=== PATIENT | male | born 1965 | race Caucasian/White ===

== ENCOUNTER 2024-04-14 08:54 | Emergency (ER) | payer BC, SELFPAY ==
[2024-04-14 09:02] VITALS: BP 135/92
--- NOTE | 2024-04-14 09:36 | ED.GENMED ---
History of Present Illness
General
Chief Complaint: Musculo-Skeletal Complaint
Source: patient
Exam Limitations: none
Time Seen by Provider: 04/14/24 09:35
Nursing documentation reviewed up to this point in time: agreed with
History of Present Illness
History of Present Illness:
This is a 59-year-old male with no past medical history who presents emergency department today with concerns of right hip pain and buttocks pain. Patient reports he feels it in the right buttocks and hip and will radiate down to the back of the
right thigh patient reports that he was walking on ice yesterday and reports that he slipped and almost fell when he tenses muscles and caught himself. Patient reports that after this occurred, he felt sharp pain and since then has been had
constant on and off pain and has trouble bearing weight on the right side. He did not fall to the ground. 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 Patient states that he has
been taking ibuprofen and Tylenol without relief. He went to urgent care yesterday and he is from [facility] but states that this has not helped his symptoms. He denies any trauma to the head, denies any neck pain. He denies any chest pain,
abdominal pain, shortness of breath
Review of Systems
Review of Systems
All Other Systems: ROS reviewed and negative except as documented in HPI and ROS
Phy Exam
Physical Exam
Physical Exam:
General: Patient is well appearing and in no acute distress; non-toxic
Skin: Warm and dry, no rashes or lesions
Head: Normocephalic, atraumatic
Eyes: Sclera non-icteric. EOMs intact.
Cardiac: Regular rate and rhythm, no murmurs
Peripheral Vascular: 2+ DP/PT pulses on the right
Pulm: Normal respiratory effort
Musculoskeletal: Point tenderness noted over the right gluteus, no hip pain with internal or external rotation, significant pain with hip flexion, positive straight leg raise
Neuro: CN II-XII intact, no focal neurologic deficits. 5/5 strength in bilateral lower extremeties
Psychiatric: Appropriate mood and affect.
Course
Orders/Labs/Results
Orders:
Orders
04/14/24 09:49
Ketorolac [Toradol] 15 mg IM NOW STA
CR Hip - RT w/wo Pel 2-3 Vw* Urgent
Comment:
Reason For Exam: right hip pain following slip
Include a pelvis x-ray?: Yes
CR Lumbar Spine 2 Or 3 Views Urgent
Comment:
Reason For Exam: right hip pain, low back pain
Vital Signs
Initial and Last Documented VS:
Initial Vital Signs
Temp Pulse Resp BP Pulse Ox
97.3 F 108 18 135/92 100
04/14/24 09:02 04/14/24 09:02 04/14/24 09:02 04/14/24 09:02 04/14/24 09:02
Last Documented Vital Signs
Temp Pulse Resp BP Pulse Ox
97.3 F 71 16 135/92 98
04/14/24 09:02 04/14/24 10:15 04/14/24 10:15 04/14/24 09:02 04/14/24 10:15
MDM/Problems Addressed
Differential Diagnosis Includes:
psoas strain, hip flexor sprain, hip bursitis
MDM/Problems Addressed:
59-year-old male with no past medical history presents emergency department today with concerns of hip pain. This started after an injury that occurred yesterday. On physical exam, he is well-appearing, he is most comfortable in the prone
position, he does have a lot of pain with hip flexion but no pain with internal/external rotation. A lot of palpable tenderness over the gluteus. Suspect hip flexor strain. Did initially offer Toradol shot to patient but he states that he would
rather trial Medrol Dosepak and Tylenol at home. Patient stable for discharge.
*Pulse Oximetry
Patient hypoxic: no
*Critical Care Note
Total Time (30-74mins, 75-104mins- exclusive of procedures): Not Applicable
Data Reviewed
Review of Other/Old Records Reveals: Records (No previous ER physician documentation to review) and Discharge Summary (No hospital discharge summaries for review)
Source: patient and records
ED Attending Note
-
Portions of this chart may have been created with voice recognition software.� Occasional wrong word or��sound alike� substitutions may have occurred due to the inherent limitations of voice recognition software.
Discharge Plan
Departure
Patient Disposition: Home (Routine Discharge)
Date of Disposition: 04/14/24
Time of Disposition: 10:50
Patient with high blood pressure during this ER visit?: Yes
Condition: Good
Discharge Problem:
Strain of flexor muscle of right hip
Instructions: Muscle Strain (DC), BLOOD PRESSURE
Referrals:
Fabián Wilkinson MD [Active] - Call in 1-3 days for appt
Gail Sheffield CRNP [Family Provider] -
Stand Alone Forms: Return to Work
Activity Restrictions/Additional Instructions:
I recommend starting the Medrol Dosepak tomorrow. You can also use Tylenol with this, you can take 1 g of Tylenol every 6 hours. Please do not exceed 4 g in a day. Do not use NSAIDs while taking the medrol.
PLEASE RETURN EMERGENCY DEPARTMENT SHOULD YOU EXPERIENCE CHEST PAIN, SHORTNESS OF BREATH, INABILITY TO AMBULATE, LOSS OF SENSATION IN YOUR RIGHT LOWER EXTREMITY, PALLOR, OR ANY OTHER SIGNS OR SYMPTOMS WORRISOME TO YOU.
Interventions
Interventions:
*Risk Screen - Suicide Last Done: 04/14/24 09:02
*General Assessment Last Done: 04/14/24 09:02
*Neglect/Abuse Screening Last Done: 04/14/24 09:02
ED- Fall Risk Assessment Last Done: 04/14/24 10:15
*ED COVID-19 Vaccine History Last Done: 04/14/24 10:15
*Nursing Disposition Last Done: 04/14/24 10:15
ED-Musculoskeletal Assessment Last Done: 04/14/24 10:15
Discharge Date and Time
Discharge Date/Time: 04/14/24 10:15
Print Language: INDONESIAN
== END 2024-04-14 10:15 | disposition home or self-care (01) ==
LOC: EMR 08:54
PROVIDERS: EMERGENCY PHYSICIAN Emergency Medicine; FAMILY PHYSICIAN Nurse Practitioner Family
DX: S76.011A Strain of muscle, fascia and tendon of right hip, initial encounter (principal); W00.0XXA Fall on same level due to ice and snow, initial encounter
CPT/HCPCS: 99283; 72100; 73502

== ENCOUNTER → 2024-04-22 18:54 | Outpatient (REF) | payer BC, SELFPAY | LOC: MRI 18:54 | PROVIDERS: ATTENDING PHYSICIAN Nurse Practitioner Family | DX: M51.369 Other intervertebral disc degeneration, lumbar region without mention of lumbar back pain or lower extremity pain (principal) | CPT/HCPCS: 72148 ==

== ENCOUNTER → 2024-06-04 10:54 | Outpatient (REF) | payer BC, SELFPAY | LOC: RAD 10:54 | PROVIDERS: ATTENDING PHYSICIAN Nurse Practitioner Acute Care; FAMILY PHYSICIAN Nurse Practitioner Family | DX: M54.16 Radiculopathy, lumbar region (principal); M43.16 Spondylolisthesis, lumbar region | CPT/HCPCS: 72131 ==